=== PATIENT | female | born 1935 | race Caucasian/White ===

== ENCOUNTER 2017-03-26 08:43 | Outpatient (CLI) | payer MEDICARE, BC ==
[2017-03-26] MEDS ORDERED: Gadobenate Dimeglumine 529 MG/1 ML (20ML VIAL) ONE (09:00)
--- NOTE | 2017-03-26 11:19 | MRI ---
BRAIN MRI WITH AND WITHOUT CONTRAST: Date: 03-26-17 Comparison: None. History: 81-year-old female with memory loss for 2 months following a fall. Technique: Multiple planar multisequence MRI imaging of the brain is provided with and without contra st. FINDINGS: There is moderate diffuse cerebral volume loss with associated prominence of the CSF containing space s. There is extensive periventricular, deep, and subcortical white matter T2 and FLAIR hyperintensity , evidence of severe small vessel disease. There is a subcutaneous lesion near the vertex on the right posteriorly measuring 1.4 cm. Clinical co rrelation is required. This is likely on the basis of a sebaceous cyst. The post contrast imaging demonstrates no abnormal enhancement within the brain parenchyma. A few opacified mastoid air cells are noted bilaterally. Arterial flow voids at axial level of skull base appear grossly unremarkable on T2 weighted imaging. Axial gradient echo imaging demonstrates no evidence for intracranial hemorrhage. IMPRESSION: Prominent small vessel disease and cerebral volume loss with associated prominence of the CSF contain ing spaces. No evidence for acute infarction. POS: [facility]
== END 2017-03-26 08:44 | disposition home or self-care (01) ==
LOC: SCSMRI 08:43
PROVIDERS: ATTEND Psychiatry & Neurology Neurology
DX: F03.90 Unspecified dementia, unspecified severity, without behavioral disturbance, psychotic disturbance, mood disturbance, and anxiety (principal); G93.9 Disorder of brain, unspecified
CPT/HCPCS: 70553; A9579

== ENCOUNTER 2017-07-01 14:03 | Emergency (ER) | payer MEDICARE, BC ==
[2017-07-01 14:36] LABS: #Eosinphils 0.2 thou/uL (0.0-0.7); #Monocytes 0.4 thou/uL (0.11-0.59); %Basophils 0.2 % (0.0-1.0); %Eosinophils 1.5 % (0.0-10.0); %Lymphocytes 8.5 % (21.0-51.0); %Monocytes 3.4 % (0.0-10.0); %Neutrophils 86.4 % (42.0-75.0); Hemoglobin 10.6 g/dL (12.0-16.0); Mean Corpuscular Hemoglobin 28.9 pg (27.0-31.0); Mean Corpuscular Volume 90.3 fl (81.0-99.0); Mean Platelet Volume 6.7 fL (7.4-10.4); Platelet Count 457 thou/uL (130-400); RBC Distribution Width 13.8 % (11.5-14.5); Red Blood Cell (RBC) Count 3.65 mill/uL (4.20-5.40); White Blood Cell (WBC) Count 11.6 thou/uL (4.8-10.8)
[2017-07-01] MEDS ORDERED: Lidocaine 1% w/Epinephrine 1:100K 20 ML VIAL ONE (14:49)
[2017-07-01 14:57] LABS: Anion Gap 11 mmol/L (10-20); BUN (Urea Nitrogen) 19 mg/dL (9.8-20.1); Calc. Creatinine Clearance 0 mL/min (70-130); Calcium 8.4 mg/dL (7.8-10.44); Carbon Dioxide 26 mmol/L (23-31); Chloride 97 mmol/L (98-107); Estimated GFR-MDRD 49; Glucose 128 mg/dL (83-110); Potassium 3.6 mmol/L (3.5-5.1); Sodium 130 mmol/L (136-145)
--- NOTE | 2017-07-01 15:05 | RAD ---
PELVIS ONE VIEW: History: Fall. Pelvic injury. FINDINGS: Right hip prosthesis is in place. Mild osteoarthritic changes of the left hip and sacroiliac joints a re apparent. Sacral ala and pelvic rings are intact. Osseous structures are demineralized. IMPRESSION: 1. Mild osteoarthritic changes left hip. 2. Right hip prosthesis. 3. Osteoporosis. POS: [facility]
--- NOTE | 2017-07-01 15:11 | RAD ---
LEFT HIP TWO VIEWS: History: Fall. Left hip injury. FINDINGS: There is mild joint space narrowing, osteophytosis and subchondral sclerosis. Femoral head contour is maintained. No acute fracture, dislocation, or aggressive osseous erosions. IMPRESSION: Mild osteoarthritic changes left hip. POS: [facility]
--- NOTE | 2017-07-01 15:43 | CT ---
CT HEAD NONCONTRAST: HISTORY: Dementia. Fall. Head injury. COMPARISON: 04/06/19. FINDINGS: There is no evidence of acute intracranial hemorrhage or infarct. Diffuse cortical atrophy and chron ic ischemic small vessel disease are again demonstrated. Ventricles are more distended than on the p revious study. Mucosal thickening is apparent within the sphenoid sinus and mastoid air cells. Scal p swelling overlies the right temporal scalp, with skin noemy. No depressed skull fracture. IMPRESSION: 1. No acute intracranial abnormalities are demonstrated. 2. Ventricular dilatation has progressed since the prior study. Clinical correlation regarding othe r signs and symptoms of normal-pressure hydrocephalus is required. 3. Atherosclerosis. POS: [facility]
== END 2017-07-01 16:20 | disposition home or self-care (01) ==
LOC: ERS 14:03
DX: S01.01XA Laceration without foreign body of scalp, initial encounter (principal); S70.02XA Contusion of left hip, initial encounter; F03.90 Unspecified dementia, unspecified severity, without behavioral disturbance, psychotic disturbance, mood disturbance, and anxiety; W19.XXXA Unspecified fall, initial encounter
CPT/HCPCS: 12001; 36415; 70450; 72170; 80048; 85025; J2001

== ENCOUNTER 2017-07-16 11:12 | Emergency (ER) | payer MEDICARE, BC | END 2017-07-16 12:07 | disposition home or self-care (01) | LOC: ERS 11:12 | DX: S01.01XD Laceration without foreign body of scalp, subsequent encounter (principal); F03.90 Unspecified dementia, unspecified severity, without behavioral disturbance, psychotic disturbance, mood disturbance, and anxiety; X58.XXXD Exposure to other specified factors, subsequent encounter ==

== ENCOUNTER 2017-08-08 09:46 | Inpatient (IN) | payer MEDICARE, BC ==
[2017-08-08 10:51] LABS: #Eosinphils 0.2 thou/uL (0.0-0.7); #Lymphocytes 1.1 thou/uL (1.20-3.40); #Monocytes 0.4 thou/uL (0.11-0.59); #Neutrophils 7.2 thou/uL (1.40-6.50); %Basophils 0.4 % (0.0-1.0); %Lymphocytes 12.6 % (21.0-51.0); %Monocytes 4.5 % (0.0-10.0); %Neutrophils 80.5 % (42.0-75.0); Mean Corpuscular HGB CONC 32.1 g/dL (32.0-36.0); Mean Corpuscular Hemoglobin 28.2 pg (27.0-31.0); Mean Corpuscular Volume 87.9 fl (81.0-99.0); Mean Platelet Volume 6.5 fL (7.4-10.4); Platelet Count 392 thou/uL (130-400); RBC Distribution Width 17.2 % (11.5-14.5); Red Blood Cell (RBC) Count 3.54 mill/uL (4.20-5.40)
[2017-08-08 11:16] LABS: ALT (SGPT) Less than 7 U/L (8-55); AST (SGOT) 9 U/L (5-34); Alkaline Phosphatase 85 U/L (40-150); Anion Gap 14 mmol/L (10-20); BUN (Urea Nitrogen) 32 mg/dL (9.8-20.1); Bilirubin, Total 0.7 mg/dL (0.2-1.2); Calc. Creatinine Clearance 0 mL/min (70-130); Calcium 8.5 mg/dL (7.8-10.44); Carbon Dioxide 26 mmol/L (23-31); Chloride 101 mmol/L (98-107); Estimated GFR-MDRD 29; Globulin 2.8 g/dL (2.4-3.5); Glucose 112 mg/dL (83-110); Potassium 3.6 mmol/L (3.5-5.1); Protein, Total 5.8 g/dL (6.0-8.3); Sodium 137 mmol/L (136-145)
[2017-08-08 11:18] LABS: CKMB 0.4 ng/mL (0-6.6); Troponin I Less than 0.010 ng/mL (< 0.028)
[2017-08-08 11:26] LABS: Bilirubin Negative (Negative); Blood, Urine Large (Negative); Clarity CLOUDY (Clear); Glucose, Urine (Dipstick) Negative (Negative); Leukocyte Large (Negative); Nitrite Positive (Negative); Protein, Urine (Dipstick) 30 mg/dL (Neg-Trace); Specific Gravity, Urine 1.016 (1.002-1.036); Urobilinogen 0.2 mg/dL (0.2-1.0); pH, Urine 5.5 (5.0-9.0)
[2017-08-08 11:28] LABS: Bacteria/HPF 4+ HPF (None Seen); Squamous Epithelial 0-3 HPF (0-3); WBC/HPF 21-50 HPF (0-3)
[2017-08-08 11:32] LABS: Pathc Cast-AUWi Flag 3.46 (0-2.49); Yeast-AUWi Flag 205.8 (0-25.0)
[2017-08-08 11:44] LABS: Crystals/HPF 1+ URIC ACID HPF (Negative); Hyaline Casts/LPF 0-3 HYALINE CAST LPF (0-3 Hyaline); Other Casts/LPF None Seen LPF (0-3 Hyaline); Yeast-All Forms None Seen HPF (None Seen)
--- NOTE | 2017-08-08 12:02 | CT ---
CT HEAD NONCONTRAST DATE: 08/08/17 HISTORY: Altered mental status. COMPARISON: 07/01/17. FINDINGS: There is no evidence of acute intracranial hemorrhage or infarct. Diffuse atrophy and chronic ischemi c small vessel disease are again demonstrated. Ventricles remain significantly dilated. Mucosal thick ening is apparent within the paranasal sinuses. There is calcification in the arterial structures. IMPRESSION: 1. No acute intracranial abnormalities are demonstrated. 2. Persistent ventricular distention. Clinical correlation regarding other signs and symptoms of nor mal pressure hydrocephalus is required. 3. Atherosclerosis. POS: [facility]
[2017-08-08] MEDS ORDERED: cefTRIAXone\\ROCEPHIN 2 GM VIAL ONE (13:53)
--- NOTE | 2017-08-08 15:58 | HP ---
DATE OF ADMISSION: 08/08/2017 CHIEF COMPLAINT: Altered mental status. HISTORY OF PRESENT ILLNESS: This is an 81-year-old white female living with her granddaughter. Miriam ent was visited by home health nurse and patient was completely disoriented and was very dizzy on sta nding. So home health nurse advised granddaughter to take the patient to the ER for further evaluati on. When patient arrived in the ER, she was totally disoriented and had a CT of the head which did n ot show any evidence of intracranial hemorrhage. Her UA was frankly positive for urinary tract infec tion. The patient had a normal white count, though she denied having any chest pain, no nausea, no vomiting , no diarrhea, and no constipation. Patient was unable to give any history and she was very hard of hearing and most of the history is obtained from the daughter who is at the bedside. The daughter de nied the patient having any vomiting or any abdominal pain. She did complain of some left ear deafne ss and was noted to have fluid in her left ear. The patient has known history of hypertension and history of history of dementia. PAST MEDICAL HISTORY: The patient has no major surgeries except for the left knee replacement and hi story of hysterectomy in the past. SOCIAL HISTORY: The patient lives with her granddaughter. No history of alcohol, no history of illi cit drug use. The patient is not a nonsmoker. FAMILY HISTORY: No significant family history of coronary artery disease. This has been thoroughly evaluated. ALLERGIES: Patient is allergic to ASPIRIN. HOME MEDICATIONS: 1. Aluminum magnesium hydroxide. 2. Bisacodyl. 3. Ciprofloxacin. 4. Enoxaparin. 5. Ferrous gluconate 325 mg p.o. b.i.d. 6. Magnesium hydroxide 30 mL p.r.n. 7. Multivitamin. 8. Pantoprazole 40 mg p.o. daily. 9. Tramadol. REVIEW OF SYSTEMS: None of the review of systems can be reviewed as the patient is completely disori ented and most of the history is obtained from the patient's daughters at the bedside. PHYSICAL EXAMINATION: VITAL SIGNS: Blood pressure is 110/88, heart rate is 80, respiratory rate is 18, saturation is 98% o n room air. GENERAL: The patient is moderately built, moderately nourished, does not appear to be in acute distr ess, but she is completely emaciated and has very poor nutritional status. HEENT: Atraumatic, normocephalic. PERRLA. Extraocular movement were intact. Oral mucosa is pink a nd moist. CARDIOVASCULAR: S1, S2 normal. No murmurs, rubs or gallops. LUNGS: Bilateral air entry was equal. No wheezing, no crackles. ABDOMEN: Soft, nontender, no guarding, no rebound tenderness. Bowel sounds normal. MUSCULOSKELETAL: No calf tenderness. No pedal edema, no joint tenderness, no joint swelling. SKIN: No cyanosis, no erythema, no rash, no pallor. CENTRAL NERVOUS SYSTEM: Cranial nerve examination II-XII intact. No focal deficits were noted. PSYCHIATRIC: No signs of suicidal ideation and no signs of toyin were noted. LABORATORY DATA: WBC is 9.0, hemoglobin is 10.0, hematocrit of 31.1, and platelets are 392. Sodium is 137, potassium 3.01, bicarbonate 26, BUN 32, creatinine is 1.67. UA was frankly positive for urinary tract infection with nitrite positive urine. ASSESSMENT: 1. Acute encephalopathy secondary to urinary tract infection. 2. Severe dehydration. 3. Severe protein calorie malnutrition. 4. Acute kidney injury. 5. Severe dementia. PLAN: 1. Plan is to closely monitor this patient. We will start the patient on Rocephin 1 gram daily. We will wait for the urine cultures and blood cultures. The patient has had a CT which was negative fo r any intracranial hemorrhage. We will closely monitor and code status has been discussed with the brian munoz thoroughly and she would like the patient NOT TO BE RESUSCITATED. 2. Patient has severe dehydration. We will continue with IV fluids at 100 mL hour and we will close ly monitor urine output. 3. Patient has worsening renal functions. We will avoid any nephrotoxic medications. We will frida nue with above fluids. Most likely this is a prerenal azotemia. The patient is not on any diuretics . 4. We will avoid any NSAIDs. 5. Patient has severe protein calorie malnutrition. We will do Ensure t.i.d. and we will have nutri tion to see the patient. 6. We will continue with PT/OT evaluation and patient would benefit from SNF placement for further p hysical deconditioning. 7. Deep venous thrombosis prophylaxis, on Lovenox. I spent 75 minutes for this patient.
[2017-08-08] MEDS ORDERED: Ondansetron ODT 4 MG TAB PO PRN (16:08)
[2017-08-08] MEDS ORDERED: Ondansetron HCl/PF 4 MG/2 ML Vial IVP PRN (16:08)
[2017-08-08] MEDS ORDERED: Acetaminophen 325 MG TAB PO PRN (16:08)
[2017-08-08] MEDS ORDERED: HYDROcodone/Acetaminophen 5/325 mg Tablet PO PRN (16:08)
[2017-08-08] MEDS ORDERED: Milk Of Magnesia 30 ML UDCUP PO PRN (16:08)
[2017-08-08 17:28] VITALS: BMI 17.4
[2017-08-08] MEDS: Sodium Chloride 0.9% 1,000 ML IV SCH (19:16)
[2017-08-08] MEDS: Ferrous Gluconate 324 MG TAB PO SCH (19:16)
[2017-08-08] MEDS: Famotidine 20 MG TAB PO SCH (20:38)
[2017-08-09] MEDS: Sodium Chloride 0.9% 1,000 ML IV SCH ×3 (02:50→21:21)
[2017-08-09 04:30] LABS: #Basophils 0.1 thou/uL (0.0-0.2); #Eosinphils 0.2 thou/uL (0.0-0.7); #Lymphocytes 1.5 thou/uL (1.20-3.40); #Monocytes 0.5 thou/uL (0.11-0.59); #Neutrophils 8.7 thou/uL (1.40-6.50); %Basophils 0.5 % (0.0-1.0); %Eosinophils 1.7 % (0.0-10.0); %Lymphocytes 13.9 % (21.0-51.0); %Monocytes 4.4 % (0.0-10.0); %Neutrophils 79.5 % (42.0-75.0); Mean Corpuscular HGB CONC 33.6 g/dL (32.0-36.0); Mean Corpuscular Hemoglobin 29.3 pg (27.0-31.0); Mean Corpuscular Volume 87.2 fl (81.0-99.0); Mean Platelet Volume 6.5 fL (7.4-10.4); Platelet Count 322 thou/uL (130-400); RBC Distribution Width 16.9 % (11.5-14.5); Red Blood Cell (RBC) Count 2.73 mill/uL (4.20-5.40)
[2017-08-09 04:54] LABS: Anion Gap 9 mmol/L (10-20); BUN (Urea Nitrogen) 27 mg/dL (9.8-20.1); Calc. Creatinine Clearance 20 mL/min (70-130); Calcium 7.8 mg/dL (7.8-10.44); Carbon Dioxide 24 mmol/L (23-31); Chloride 105 mmol/L (98-107); Estimated GFR-MDRD 35; Glucose 100 mg/dL (83-110); Sodium 135 mmol/L (136-145)
[2017-08-09 05:06] LABS: Potassium 2.8 mmol/L (3.5-5.1)
[2017-08-09] MEDS ORDERED: Potassium Chloride 20 MEQ TAB PO SCH (05:45)
[2017-08-09] MEDS: Multivitamin W/ Minerals 1 TAB PO SCH (08:55)
[2017-08-09] MEDS: Ferrous Gluconate 324 MG TAB PO SCH ×2 (08:55→16:31)
[2017-08-09] MEDS: Enoxaparin Sodium 30 MG/0.3 ML SYRINGE SC SCH (08:55)
[2017-08-09 13:35] LABS: Potassium 3.4 mmol/L (3.5-5.1)
[2017-08-09] MEDS ORDERED: cefTRIAXone\\ROCEPHIN 1 GM in Syringe 10 ML IVPB SCH (14:00)
--- NOTE | 2017-08-09 14:52 | PDOC.PN ---
- Subjective Encounter Start Date: 08/09/17 Encounter Start Time: 13:00 Patient is seen today, alert and disoirted. but augie said she was feeling little better today. - Objective MAR Reviewed: Yes Vital Signs & Weight: Vital Signs (12 hours) Temp Pulse Resp BP Pulse Ox 08/09/17 11:24 97.8 F 68 16 119/74 94 L 08/09/17 08:00 97.4 F L 67 16 93 L 08/09/17 07:47 97.4 F L 67 16 115/67 93 L 08/09/17 04:00 98.7 F 69 18 110/64 95 Weight Admit Weight 95 lb 4 oz Weight 95 lb 4 oz I&O: 08/08/17 08/09/17 08/10/17 06:59 06:59 06:59 Intake Total 1350 Balance 1350 Result Diagrams: 08/09/17 03:43 08/09/17 12:58 Radiology Reviewed by me: Yes Phys Exam - Physical Examination HEENT: PERRLA, moist MMs Neck: no nodes, no JVD Respiratory: no wheezing, no rales Cardiovascular: RRR, no significant murmur Gastrointestinal: soft, non-tender Musculoskeletal: no edema, pulses present Lymphatic: no nodes Psychiatric: normal affect Skin: no rash, normal turgor Dx/Plan (1) Acute encephalopathy Code(s): G93.40 - ENCEPHALOPATHY, UNSPECIFIED Status: Acute Comment: Improvimg slowly Multifactorial, Likely from UTI and Dehydration. (2) Acute pyelonephritis Code(s): N10 - ACUTE PYELONEPHRITIS Status: Acute Comment: Will change Abx to Meropenam as WBC is worseing and pt urine culture is positive for Ecoli. (3) Severe dehydration Code(s): E86.0 - DEHYDRATION Status: Acute Comment: Improving with good urine output. (4) Severe protein-energy malnutrition Code(s): E43 - UNSPECIFIED SEVERE PROTEIN-CALORIE MALNUTRITION Status: Acute Comment: Encouraging pt with ensure TID, will alexus monitor her feeds. - Plan cont current plan of care, continue antibiotics, PT/OT, social services assistant, respiratory therapy, incentive spirometry, out of bed/ambulate, DVT proph w/ lovenox * . - Discharge Day Encounter end time: 13:35 Review of Systems - Review of Systems Constitutional: weakness, malaise Eyes: negative: Pain, Vision Change, Conjunctivae Inflammation, Eyelid Inflammation, Redness, Other ENT: negative: Ear Pain, Ear Discharge, Nose Pain, Nose Discharge, Nose Congestion, Mouth Pain, Mouth Swelling, Throat Pain, Throat Swelling, Other Musculoskeletal: negative: Neck Pain, Shoulder Pain, Arm Pain, Back Pain, Hand Pain, Leg Pain, Foot Pain, Other - Medications/Allergies Allergies/Adverse Reactions: Allergies Allergy/AdvReac Type Severity Reaction Status Date / Time aspirin Allergy Verified 10/25/15 01:26 mercury (elemental) Allergy Verified 10/25/15 01:26 Medications: Current Medications Acetaminophen (Tylenol) 650 mg PO Q4H PRN PRN Reason: Headache/Fever or Pain Hydrocodone Bitart/Acetaminophen ([place] 5/325) 1 tab PO Q4H PRN PRN Reason: Moderate Pain (4-6) Enoxaparin Sodium (Lovenox) 30 mg SC 0900 [facility] Last Admin: 08/09/17 08:55 Dose: 30 mg Famotidine (Pepcid) 20 mg PO Q24HR [facility] Last Admin: 08/08/17 20:38 Dose: 20 mg Ferrous Gluconate (Fergon) 324 mg PO BID-[facility] Last Admin: 08/09/17 08:55 Dose: 324 mg Sodium Chloride (Normal Saline 0.9%) 1,000 mls @ 100 mls/hr IV .Q10H [facility] Last Admin: 08/09/17 12:59 Dose: 1,000 mls Meropenem 500 mg/Miscellaneous Medication 1 each/ Sterile Water 10 mls @ 120 mls/hr SLOW IVP Q8HR [facility] Iron/Minerals/Multivitamins (Theragran M) 1 tab PO DAILY [facility] Last Admin: 08/09/17 08:55 Dose: 1 tab Magnesium Hydroxide (Milk Of Magnesium) 30 ml PO DAILYPRN PRN PRN Reason: Constipation Ondansetron HCl (Zofran Odt) 4 mg PO Q6H PRN PRN Reason: Nausea/Vomiting Ondansetron HCl (Zofran) 4 mg IVP Q6H PRN PRN Reason: Nausea/Vomiting
[2017-08-09] MEDS: Meropenem 500 MG in Sodium Chloride 0.9% 100 ML SLOW IVP SCH (21:00)
[2017-08-09] MEDS: Famotidine 20 MG TAB PO SCH (21:01)
[2017-08-09] MEDS ORDERED: Meropenem 500 MG in Sodium Chloride 0.9% 100 ML IVPB SCH (22:00)
[2017-08-10] MEDS: Meropenem 500 MG in Sodium Chloride 0.9% 100 ML SLOW IVP SCH ×3 (05:29→21:03)
[2017-08-10] MEDS: Sodium Chloride 0.9% 1,000 ML IV SCH ×2 (08:00→12:31)
[2017-08-10] MEDS: Ferrous Gluconate 324 MG TAB PO SCH ×2 (08:25→16:22)
[2017-08-10] MEDS: Enoxaparin Sodium 30 MG/0.3 ML SYRINGE SC SCH (08:25)
[2017-08-10] MEDS: Multivitamin W/ Minerals 1 TAB PO SCH (09:25)
[2017-08-10 09:37] LABS: #Basophils 0.1 thou/uL (0.0-0.2); #Eosinphils 0.3 thou/uL (0.0-0.7); #Lymphocytes 1.4 thou/uL (1.20-3.40); #Monocytes 0.3 thou/uL (0.11-0.59); #Neutrophils 5.3 thou/uL (1.40-6.50); %Basophils 0.9 % (0.0-1.0); %Eosinophils 3.7 % (0.0-10.0); %Monocytes 4.2 % (0.0-10.0); %Neutrophils 72.2 % (42.0-75.0); Hemoglobin 7.6 g/dL (12.0-16.0); Mean Corpuscular HGB CONC 31.4 g/dL (32.0-36.0); Mean Corpuscular Hemoglobin 28.1 pg (27.0-31.0); Mean Corpuscular Volume 89.3 fl (81.0-99.0); Mean Platelet Volume 6.8 fL (7.4-10.4); Platelet Count 298 thou/uL (130-400); RBC Distribution Width 17.2 % (11.5-14.5); Red Blood Cell (RBC) Count 2.72 mill/uL (4.20-5.40); White Blood Cell (WBC) Count 7.4 thou/uL (4.8-10.8)
[2017-08-10 09:55] LABS: Anion Gap 7 mmol/L (10-20); BUN (Urea Nitrogen) 19 mg/dL (9.8-20.1); Calc. Creatinine Clearance 26 mL/min (70-130); Calcium 7.7 mg/dL (7.8-10.44); Carbon Dioxide 22 mmol/L (23-31); Chloride 108 mmol/L (98-107); Estimated GFR-MDRD 45; Glucose 100 mg/dL (83-110); Potassium 3.3 mmol/L (3.5-5.1); Sodium 134 mmol/L (136-145)
--- NOTE | 2017-08-10 13:28 | PDOC.PN ---
- Subjective Encounter Start Date: 08/10/17 Encounter Start Time: 12:15 Lorena is seen today, remains altered and hard of hearing, She has Drug resistant Ecoli sentive only to IV Abx meropenam, will need to continue for 7 days of IV. - Objective MAR Reviewed: Yes Vital Signs & Weight: Vital Signs (12 hours) Temp Pulse Resp BP Pulse Ox 08/10/17 12:18 97.5 F L 61 16 104/66 92 L 08/10/17 10:23 98.3 F 69 16 92 L 08/10/17 07:57 98.3 F 69 16 107/64 92 L Weight Admit Weight 95 lb 4 oz Weight 95 lb 4 oz I&O: 08/09/17 08/10/17 08/11/17 06:59 06:59 06:59 Intake Total 1350 1350 Balance 1350 1350 Result Diagrams: 08/10/17 09:08 08/10/17 09:08 Radiology Reviewed by me: Yes Phys Exam - Physical Examination HEENT: PERRLA, moist MMs Neck: no nodes, no JVD Respiratory: no wheezing, no rales Cardiovascular: RRR, no significant murmur Gastrointestinal: soft, non-tender Musculoskeletal: no edema, pulses present Neurological: non-focal, normal sensation Dx/Plan (1) Acute encephalopathy Code(s): G93.40 - ENCEPHALOPATHY, UNSPECIFIED Status: Acute Comment: Improvimg slowly Multifactorial, Likely from UTI and Dehydration. (2) Acute pyelonephritis Code(s): N10 - ACUTE PYELONEPHRITIS Status: Acute Comment: Will continue on Meropenam as WBC is worseing and pt urine culture is Multidrug resistant Ecoli. (3) Severe dehydration Code(s): E86.0 - DEHYDRATION Status: Acute Comment: Improving with good urine output. (4) Severe protein-energy malnutrition Code(s): E43 - UNSPECIFIED SEVERE PROTEIN-CALORIE MALNUTRITION Status: Acute Comment: Encouraging pt with ensure TID, will alexus monitor her feeds. - Plan cont current plan of care, continue antibiotics, PT/OT, banking services advisor, respiratory therapy, incentive spirometry, DVT proph w/lovenox * . - Discharge Day Encounter end time: 13:00 Review of Systems - Review of Systems Eyes: negative: Pain, Vision Change, Conjunctivae Inflammation, Eyelid Inflammation, Redness, Other ENT: negative: Ear Pain, Ear Discharge, Nose Pain, Nose Discharge, Nose Congestion, Mouth Pain, Mouth Swelling, Throat Pain, Throat Swelling, Other Respiratory: negative: Cough, Dry, Shortness of Breath, Hemoptysis, SOB with Excertion, Pleuritic Pain, Sputum, Wheezing Cardiovascular: negative: chest pain, palpitations, orthopnea, paroxysmal nocturnal dyspnea, edema, light headedness, other Gastrointestinal: negative: Nausea, Vomiting, Abdominal Pain, Diarrhea, Constipation, Melena, Hematochezia, Other - Medications/Allergies Allergies/Adverse Reactions: Allergies Allergy/AdvReac Type Severity Reaction Status Date / Time aspirin Allergy Verified 10/25/15 01:26 mercury (elemental) Allergy Verified 10/25/15 01:26 Medications: Current Medications Acetaminophen (Tylenol) 650 mg PO Q4H PRN PRN Reason: Headache/Fever or Pain Hydrocodone Bitart/Acetaminophen ([place] 5/325) 1 tab PO Q4H PRN PRN Reason: Moderate Pain (4-6) Enoxaparin Sodium (Lovenox) 30 mg SC 0900 [facility] Last Admin: 08/10/17 08:25 Dose: 30 mg Famotidine (Pepcid) 20 mg PO Q24HR [facility] Last Admin: 08/09/17 21:01 Dose: 20 mg Ferrous Gluconate (Fergon) 324 mg PO BID-[facility] Last Admin: 08/10/17 08:25 Dose: 324 mg Sodium Chloride (Normal Saline 0.9%) 1,000 mls @ 100 mls/hr IV .Q10H [facility] Last Admin: 08/10/17 12:31 Dose: 1,000 mls Meropenem 500 mg/ Sodium (Chloride) 100 mls @ 200 mls/hr SLOW IVP Q8HR [facility] Last Admin: 08/10/17 05:29 Dose: 100 mls Iron/Minerals/Multivitamins (Theragran M) 1 tab PO DAILY [facility] Last Admin: 08/10/17 09:25 Dose: 1 tab Magnesium Hydroxide (Milk Of Magnesium) 30 ml PO DAILYPRN PRN PRN Reason: Constipation Ondansetron HCl (Zofran Odt) 4 mg PO Q6H PRN PRN Reason: Nausea/Vomiting Ondansetron HCl (Zofran) 4 mg IVP Q6H PRN PRN Reason: Nausea/Vomiting
[2017-08-10] MEDS: Famotidine 20 MG TAB PO SCH (21:03)
[2017-08-11] MEDS: Sodium Chloride 0.9% 1,000 ML IV SCH ×4 (00:15→19:26)
[2017-08-11] MEDS: Meropenem 500 MG in Sodium Chloride 0.9% 100 ML SLOW IVP SCH ×3 (07:33→21:05)
[2017-08-11] MEDS: Ferrous Gluconate 324 MG TAB PO SCH ×2 (09:00→16:22)
[2017-08-11] MEDS: Enoxaparin Sodium 30 MG/0.3 ML SYRINGE SC SCH (09:00)
[2017-08-11] MEDS: Multivitamin W/ Minerals 1 TAB PO SCH (09:00)
--- NOTE | 2017-08-11 13:32 | PDOC.PN ---
- Subjective Encounter Start Date: 08/11/17 Encounter Start Time: 11:00 Patient is seen day, alert, disoriented. She is being fed by nurse and is eating well. No family member around. - Objective MAR Reviewed: Yes Vital Signs & Weight: Vital Signs (12 hours) Temp Pulse Resp BP Pulse Ox 08/11/17 11:58 98.2 F 71 18 108/65 96 08/11/17 07:21 98.1 F 72 16 114/73 94 L 08/11/17 07:16 98.6 F 68 18 Weight Admit Weight 95 lb 4 oz Weight 95 lb 4 oz I&O: 08/10/17 08/11/17 08/12/17 06:59 06:59 06:59 Intake Total 1350 1680 Balance 1350 1680 Result Diagrams: 08/10/17 09:08 08/10/17 09:08 Radiology Reviewed by me: Yes Phys Exam - Physical Examination HEENT: PERRLA Neck: no nodes, no JVD Respiratory: no wheezing, no rales Cardiovascular: RRR, no significant murmur Gastrointestinal: soft, non-tender Musculoskeletal: no edema, pulses present Neurological: non-focal, normal sensation Lymphatic: no nodes Dx/Plan (1) Acute encephalopathy Code(s): G93.40 - ENCEPHALOPATHY, UNSPECIFIED Status: Acute Comment: Improvimg slowly Multifactorial, Likely from UTI and Dehydration. (2) Acute pyelonephritis Code(s): N10 - ACUTE PYELONEPHRITIS Status: Acute Comment: Will continue on Meropenam as WBC is worseing and pt urine culture is Multidrug resistant Ecoli. (3) Severe dehydration Code(s): E86.0 - DEHYDRATION Status: Acute Comment: Improving with good urine output. (4) Severe protein-energy malnutrition Code(s): E43 - UNSPECIFIED SEVERE PROTEIN-CALORIE MALNUTRITION Status: Acute Comment: Encouraging pt with ensure TID, will closley monitor her feeds. - Plan cont current plan of care, continue antibiotics, PT/OT, vp digital marketing social media and crm (Will need SNF/ NH placement, pt is not cared well at home. ), respiratory therapy, DVT proph w/lovenox * . - Discharge Day Encounter end time: 11:35 Review of Systems - Review of Systems Constitutional: negative: fever, chills, sweats, weakness, malaise, other Eyes: negative: Pain, Vision Change, Conjunctivae Inflammation, Eyelid Inflammation, Redness, Other Cardiovascular: negative: chest pain, palpitations, orthopnea, paroxysmal nocturnal dyspnea, edema, light headedness, other Gastrointestinal: negative: Nausea, Vomiting, Abdominal Pain, Diarrhea, Constipation, Melena, Hematochezia, Other - Medications/Allergies Allergies/Adverse Reactions: Allergies Allergy/AdvReac Type Severity Reaction Status Date / Time aspirin Allergy Verified 10/25/15 01:26 mercury (elemental) Allergy Verified 10/25/15 01:26 Medications: Current Medications Acetaminophen (Tylenol) 650 mg PO Q4H PRN PRN Reason: Headache/Fever or Pain Hydrocodone Bitart/Acetaminophen ([place] 5/325) 1 tab PO Q4H PRN PRN Reason: Moderate Pain (4-6) Enoxaparin Sodium (Lovenox) 30 mg SC 0900 [facility] Last Admin: 08/11/17 09:00 Dose: 30 mg Famotidine (Pepcid) 20 mg PO Q24HR [facility] Last Admin: 08/10/17 21:03 Dose: 20 mg Ferrous Gluconate (Fergon) 324 mg PO BID-[facility] Last Admin: 08/11/17 09:00 Dose: 324 mg Sodium Chloride (Normal Saline 0.9%) 1,000 mls @ 100 mls/hr IV .Q10H [facility] Last Admin: 08/11/17 00:15 Dose: 1,000 mls Meropenem 500 mg/ Sodium (Chloride) 100 mls @ 200 mls/hr SLOW IVP Q8HR [facility] Last Admin: 08/11/17 07:33 Dose: 100 mls Iron/Minerals/Multivitamins (Theragran M) 1 tab PO DAILY [facility] Last Admin: 08/11/17 09:00 Dose: 1 tab Magnesium Hydroxide (Milk Of Magnesium) 30 ml PO DAILYPRN PRN PRN Reason: Constipation Ondansetron HCl (Zofran Odt) 4 mg PO Q6H PRN PRN Reason: Nausea/Vomiting Ondansetron HCl (Zofran) 4 mg IVP Q6H PRN PRN Reason: Nausea/Vomiting
[2017-08-11] MEDS: Famotidine 20 MG TAB PO SCH (21:05)
[2017-08-12] MEDS: Sodium Chloride 0.9% 1,000 ML IV SCH ×2 (00:44→10:00)
[2017-08-12 04:54] LABS: #Basophils 0.1 thou/uL (0.0-0.2); #Eosinphils 0.3 thou/uL (0.0-0.7); #Lymphocytes 1.4 thou/uL (1.20-3.40); #Monocytes 0.4 thou/uL (0.11-0.59); #Neutrophils 5.9 thou/uL (1.40-6.50); %Basophils 0.6 % (0.0-1.0); %Eosinophils 3.3 % (0.0-10.0); %Lymphocytes 17.3 % (21.0-51.0); %Monocytes 4.6 % (0.0-10.0); %Neutrophils 74.2 % (42.0-75.0); Hemoglobin 7.4 g/dL (12.0-16.0); Mean Corpuscular HGB CONC 32.7 g/dL (32.0-36.0); Mean Corpuscular Hemoglobin 29.2 pg (27.0-31.0); Mean Corpuscular Volume 89.5 fl (81.0-99.0); Mean Platelet Volume 6.9 fL (7.4-10.4); Platelet Count 268 thou/uL (130-400); RBC Distribution Width 17.2 % (11.5-14.5); Red Blood Cell (RBC) Count 2.52 mill/uL (4.20-5.40)
[2017-08-12 04:57] LABS: Anion Gap 7 mmol/L (10-20); BUN (Urea Nitrogen) 21 mg/dL (9.8-20.1); Calc. Creatinine Clearance 27 mL/min (70-130); Calcium 7.3 mg/dL (7.8-10.44); Carbon Dioxide 21 mmol/L (23-31); Chloride 108 mmol/L (98-107); Estimated GFR-MDRD 48; Glucose 115 mg/dL (83-110); Potassium 3.4 mmol/L (3.5-5.1); Sodium 133 mmol/L (136-145)
[2017-08-12] MEDS: Meropenem 500 MG in Sodium Chloride 0.9% 100 ML SLOW IVP SCH ×3 (06:09→20:31)
[2017-08-12] MEDS: Multivitamin W/ Minerals 1 TAB PO SCH (08:58)
[2017-08-12] MEDS: Enoxaparin Sodium 30 MG/0.3 ML SYRINGE SC SCH (08:58)
[2017-08-12] MEDS: Ferrous Gluconate 324 MG TAB PO SCH ×2 (08:58→16:21)
--- NOTE | 2017-08-12 15:03 | PDOC.PN ---
- Subjective Encounter Start Date: 08/12/17 Encounter Start Time: 12:00 Patient is seen today, alert but remains disoriented. She is eating well with Feeding by nurse, She needs NH placement for better care. - Objective MAR Reviewed: Yes Vital Signs & Weight: Vital Signs (12 hours) Temp Pulse Resp BP BP Pulse Ox 08/12/17 11:15 97.5 F L 73 18 124/70 08/12/17 08:00 97.9 F 64 16 105/65 98 08/12/17 07:37 97.3 F L 80 18 08/12/17 05:47 97.3 F L Weight Admit Weight 95 lb 4 oz Weight 95 lb 4 oz I&O: 08/11/17 08/12/17 08/13/17 06:59 06:59 06:59 Intake Total 1680 3446 Balance 1680 3446 Result Diagrams: 08/12/17 04:25 08/12/17 04:25 Radiology Reviewed by me: Yes Phys Exam - Physical Examination HEENT: PERRLA, moist MMs Neck: no nodes, no JVD Respiratory: no wheezing, no rales Cardiovascular: RRR, no significant murmur Gastrointestinal: soft, non-tender Musculoskeletal: no edema, pulses present Neurological: non-focal, normal sensation Psychiatric: normal affect, A&O x 3 Dx/Plan (1) Acute encephalopathy Code(s): G93.40 - ENCEPHALOPATHY, UNSPECIFIED Status: Acute Comment: Improvimg slowly Multifactorial, Likely from UTI and Dehydration. (2) Acute pyelonephritis Code(s): N10 - ACUTE PYELONEPHRITIS Status: Acute Comment: Will continue on Meropenam for total 7 days, . pt urine culture is Multidrug resistant Ecoli. (3) Severe dehydration Code(s): E86.0 - DEHYDRATION Status: Acute Comment: Improving with good urine output. (4) Severe protein-energy malnutrition Code(s): E43 - UNSPECIFIED SEVERE PROTEIN-CALORIE MALNUTRITION Status: Acute Comment: Encouraging pt with ensure TID, will alexus monitor her feeds. - Plan cont current plan of care, anna catheter, continue antibiotics, PT/OT, out of bed/ambulate, DVT proph w/lovenox * . - Discharge Day Encounter end time: 12:35 Review of Systems - Review of Systems Eyes: negative: Pain, Vision Change, Conjunctivae Inflammation, Eyelid Inflammation, Redness, Other ENT: negative: Ear Pain, Ear Discharge, Nose Pain, Nose Discharge, Nose Congestion, Mouth Pain, Mouth Swelling, Throat Pain, Throat Swelling, Other Cardiovascular: negative: chest pain, palpitations, orthopnea, paroxysmal nocturnal dyspnea, edema, light headedness, other Gastrointestinal: negative: Nausea, Vomiting, Abdominal Pain, Diarrhea, Constipation, Melena, Hematochezia, Other Musculoskeletal: negative: Neck Pain, Shoulder Pain, Arm Pain, Back Pain, Hand Pain, Leg Pain, Foot Pain, Other - Medications/Allergies Allergies/Adverse Reactions: Allergies Allergy/AdvReac Type Severity Reaction Status Date / Time aspirin Allergy Verified 10/25/15 01:26 mercury (elemental) Allergy Verified 10/25/15 01:26 Medications: Current Medications Acetaminophen (Tylenol) 650 mg PO Q4H PRN PRN Reason: Headache/Fever or Pain Last Admin: 08/12/17 00:50 Dose: 650 mg Hydrocodone Bitart/Acetaminophen ([place] 5/325) 1 tab PO Q4H PRN PRN Reason: Moderate Pain (4-6) Enoxaparin Sodium (Lovenox) 30 mg SC 0900 [facility] Last Admin: 08/12/17 08:58 Dose: 30 mg Famotidine (Pepcid) 20 mg PO Q24HR [facility] Last Admin: 08/11/17 21:05 Dose: 20 mg Ferrous Gluconate (Fergon) 324 mg PO BID-[facility] Last Admin: 08/12/17 08:58 Dose: 324 mg Meropenem 500 mg/ Sodium (Chloride) 100 mls @ 200 mls/hr SLOW IVP Q8HR [facility] Last Admin: 08/12/17 13:35 Dose: 100 mls Iron/Minerals/Multivitamins (Theragran M) 1 tab PO DAILY [facility] Last Admin: 08/12/17 08:58 Dose: 1 tab Magnesium Hydroxide (Milk Of Magnesium) 30 ml PO DAILYPRN PRN PRN Reason: Constipation Ondansetron HCl (Zofran Odt) 4 mg PO Q6H PRN PRN Reason: Nausea/Vomiting Ondansetron HCl (Zofran) 4 mg IVP Q6H PRN PRN Reason: Nausea/Vomiting
[2017-08-12] MEDS: Famotidine 20 MG TAB PO SCH (20:31)
[2017-08-13] MEDS: Meropenem 500 MG in Sodium Chloride 0.9% 100 ML SLOW IVP SCH (05:55)
[2017-08-13] MEDS: Multivitamin W/ Minerals 1 TAB PO SCH (08:22)
[2017-08-13] MEDS: Enoxaparin Sodium 30 MG/0.3 ML SYRINGE SC SCH (08:22)
[2017-08-13] MEDS: Ferrous Gluconate 324 MG TAB PO SCH (08:22)
[2017-08-13 12:36] VITALS: TEMP 98.2
--- NOTE | 2017-08-13 13:28 | DIS ---
DATE OF ADMISSION: 08/08/2017 DATE OF DISCHARGE: 08/13/2017 DISCHARGE DIAGNOSES: 1. Urinary tract infection with Escherichia coli. 2. Acute metabolic encephalopathy secondary to #1. 3. Severe dehydration, resolved. 4. Severe protein-calorie malnutrition. 5. Deconditioning. 6. Advanced dementia. CONSULTATIONS: None. PERTINENT LABORATORY DATA AND X-RAY FINDINGS: Potassium ranged between 2.8 to 3.6, creatinine ranged between 1.10 to 1.67, estimated GFR ranging between 29 to 48. Magnesium level 1.5. CBC showed a wh ite blood cell count ranging between 7.4 to 11.0, hemoglobin ranging 7.4 to 10. Urine culture dated 08/08/2017 showed greater than 100,000 colonies of E. coli. Blood cultures x2 from 08/08/2017 showed no growth at [address] of the brain without contrast dated 08/08/2017 showed no acute intracrani al process. HOSPITAL COURSE: Patient was admitted to the medical floor after initially presenting with altered m ental status and encephalopathy with urinalysis concerning for infectious process. Patient was initi ally placed on IV Rocephin; however, after reviewing the urine culture results and sensitivity patter ns, patient was transitioned to meropenem 500 mg IV q.8 hours. Patient was slow to clinically improv e and remains disoriented during the hospital course. Mental status had improved from the time of ad mission and by the time of discharge; however, patient was exhibiting evidence of severe dementia. D ue to patient's overall comorbid status and deconditioned state, patient was deemed an appropriate ca ndidate for ongoing skilled and supervised care. Patient clinically stable and ready to transfer to [facility] on 08/13/2017. I have examined the patient at the time of discharge and discussed. DISPOSITION AND DISCHARGE PLANNING: At which point, patient agrees verbalized understanding and agre ement. Patient overall clinically stable and ready for discharge. DISCHARGE MEDICATIONS: 1. Macrobid 100 mg p.o. b.i.d. until 08/15/2017. 2. Ferrous sulfate 325 mg p.o. daily. 3. Lovenox 30 mg subcutaneously daily. 4. Aricept 10 mg p.o. daily. FOLLOWUP: Patient to follow up with Dr. Edmund Reyes after discharge from [facility]. CONDITION ON DISCHARGE: Fair. ACTIVITY: Ad anuj. Rolling walker with standby/contact guard assistance and high fall risk precautio ns. DIET: Regular, Ensure t.i.d. with meals. CODE STATUS: DO NOT RESUSCITATE. DISPOSITION: Discharged to [place], [place] 08/13/2017. Total time preparing and coordinating discharge is 32 minutes.
[2017-08-13 14:17] VITALS: BP 106/58
== END 2017-08-13 13:13 | DRG 689 ==
LOC: ERS 09:46 → T4-B 16:09
PROVIDERS: ADMIT Family Medicine; ATTEND Family Medicine
DX: N10 Acute pyelonephritis (principal); E43 Unspecified severe protein-calorie malnutrition; N17.9 Acute kidney failure, unspecified; G93.41 Metabolic encephalopathy; E86.0 Dehydration; F03.90 Unspecified dementia, unspecified severity, without behavioral disturbance, psychotic disturbance, mood disturbance, and anxiety; Z88.6 Allergy status to analgesic agent; B96.20 Unspecified Escherichia coli [E. coli] as the cause of diseases classified elsewhere
CPT/HCPCS: 36415; 51701; 70450; 80048; 80053; 81003; 81015; 82553; 83735; 84484; 85025; 87040; 87077; 87086; 87186; 93005; 96365; 96366; A4216; A4353; G8978-GP-CM; G8979-GP-CJ; G8987-GO-CM; G8988-GO-CK; J0696; J1650; J2185; J3475; J7050